=== PATIENT | male | born 1975 | race African-American/Black ===

== ENCOUNTER 2016-04-06 16:15 | Emergency (ER) | payer SELFPAY ==
--- NOTE | 2016-04-06 16:48 | ED ---
General Adult HPI - General Chief complaint: Extremity Injury, Lower Stated complaint: toe injury Time Seen by Provider: 04/06/16 16:31 Source: patient, RN notes reviewed Mode of arrival: wheelchair Limitations: no limitations - History of Present Illness Initial comments: This is a 41-year-old male presents with right foot pain started yesterday. Patient states he kicked a wall and has now noticed bruising and swelling to the big toe area of the right foot. Patient has been able to ambulate. Patient denies any numbness/tingling or weakness. Patient is not on any anticoagulants. Patient denies any recent fever, chills, shortness breath, chest pain, abdominal pain, nausea/vomiting/diarrhea, back pain, hematuria, headache, or visual changes, or any other complaints. - Related Data Previous Rx's Medication Instructions Recorded HYDROcodone/APAP 5-325MG [[place] 1 tab PO Q6HR #12 tab 04/06/16 5-325] Allergies Allergy/AdvReac Type Severity Reaction Status Date / Time No Known Allergies Allergy Verified 04/06/16 16:42 Review of Systems ROS Statement: Those systems with pertinent positive or pertinent negative responses have been documented in the HPI. ROS Other: All systems not noted in ROS Statement are negative. Past Medical History Past Medical History: No Reported History History of Any Multi-Drug Resistant Organisms: None Reported Past Surgical History: No Surgical Hx Reported Past Psychological History: Anxiety Smoking Status: Current every day smoker Past Alcohol Use History: None Reported Past Drug Use History: Marijuana General Exam - General Exam Comments Initial Comments: General: The patient is awake and alert, in no distress, and does not appear acutely ill. Neck: The neck is supple, there is no tenderness or JVD. Cardiovascular: There is a regular rate and rhythm. No murmur, rub or gallop is appreciated. Respiratory: Lungs are clear to auscultation, respirations are non-labored, breath sounds are equal. No wheezes, stridor, rales, or rhonchi. Musculoskeletal: There is tenderness to palpation over the great toe of the right foot, and also to the first MTP joint of the right foot and to the dorsal aspect of the right foot. There is mild swelling to the great toe and over the first MTP joint with mild ecchymosis. Full range of motion, strength 5/5 and Sensation intact. Posterior tibial pulses 2+ bilaterally. Capillary refill is normal at less than 2 seconds. Neurological: A&O x 3. CN II-XII intact, There are no obvious motor or sensory deficits. Coordination appears grossly intact. Speech is normal. Skin: There is ecchymosis to the great toe the right foot. Skin is warm and dry and no rashes or lesions are noted. Psychiatric: Normal mood and affect. Limitations: no limitations Course Vital Signs 04/06/16 16:36 Temperature 97.5 F L Pulse Rate 80 Respiratory 20 Rate Blood Pressure 146/90 O2 Sat by Pulse 97 Oximetry Medical Decision Making - Medical Decision Making This is a 41-year-old male with right foot pain 1 day. On physical exam There is tenderness to palpation over the great toe of the right foot, and also to the first MTP joint of the right foot and to the dorsal aspect of the right foot. There is mild swelling to the great toe and over the first MTP joint with mild ecchymosis. Full range of motion, strength 5/5 and Sensation intact. Posterior tibial pulses 2+ bilaterally. Capillary refill is normal at less than 2 seconds. An x-ray of the right foot was done and reviewed joint: Comminuted nondisplaced fracture great toe. Reported by Dr. Messina. Discussed results with patient. Discussed rest, ice, elevate and use postop shoe while up and walking. I discussed weight-bearing as tolerated. Patient's toe was checo taped. Motrin and Tylenol as needed for pain. I discussed [place] only for breakthrough pain. I discussed sedation effects. I discussed return parameters. Discussed the patient is to follow-up with orthopedics in one to 2 days. I discussed the patient is to follow-up with his primary care physician in one to 2 days or return to the [facility] for any worsening symptoms or for any further concerns. Patient was receptive to this plan and patient will be discharged home. Disposition Clinical Impression: Fracture of great toe of right foot Disposition: HOME SELF-CARE Condition: Good Instructions: Toe Fracture (ED) Additional Instructions: Please rest, ice, elevate and use postop shoe while up and walking. Weightbearing as tolerated. Please keep toes checo taped. Please use over-the- counter Tylenol or Motrin as needed for pain. Please use [place] only for breakthrough pain. Please be aware that [place] community drowsily please do not use this medication while at work, driving or while drinking alcohol. Follow up with orthopedics in the next 1-2 days. Please follow-up with family doctor in the next 2 days of symptoms have not improved. Please return to emergency room if the symptoms increase or worsen or for any other concerns. Prescriptions: HYDROcodone/APAP 5-325MG [[place] 5-325] 1 tab PO Q6HR #12 tab Referrals: None,Stated [Primary Care Provider] - 1-2 days Angelita Angeles MD [REFERRING] - 1-2 days Shelli Barba III, MD [STAFF PHYSICIAN] - 1-2 days Jace Lindsey MD [STAFF PHYSICIAN] - 1-2 days Time of Disposition: 17:18
--- NOTE | 2016-04-06 17:07 | XR ---
EXAMINATION TYPE: XR foot complete RT DATE OF EXAM: 04/06/2016 4:58 PM COMPARISON: NONE HISTORY: Pain TECHNIQUE: 3 views right foot FINDINGS: There is a comminuted fracture proximal phalanx great toe. The major fracture lines appear to be predominantly longitudinal and nondisplaced. No additional fractures are evident. Joint spaces appear preserved. IMPRESSION: 1. Comminuted nondisplaced fracture great toe.
[2016-04-06 17:30] VITALS: BP 142/78; PULSE 78; RESP 18; TEMP 97.2
== END 2016-04-06 17:29 | disposition home or self-care (01) ==
LOC: EC 16:15
DX: S92.414A Nondisplaced fracture of proximal phalanx of right great toe, initial encounter for closed fracture (principal); W22.09XA Striking against other stationary object, initial encounter; F17.200 Nicotine dependence, unspecified, uncomplicated
CPT/HCPCS: 99283